=== PATIENT | female | born 1925 | race Caucasian/White ===

== ENCOUNTER 2016-09-03 17:45 | Emergency (ER) | payer MEDICARE, BC ==
[~2016-09-03 17:45] MED LIST: DIFLUCAN PO; DITROPAN 5MG TAB5 MG PO; FEMIRON20 MG; FERROUS SU325 MG/TAB PO; MICONAZOLE CREA30 GM TP; MULTI VITAMINS1 TAB PO; MYSOLINE 5050 MG/TAB PO; THERAGRAN TAB1 UDTAB PO; WARFARIN SOD5 MG PO; WARFARIN SODIUM1 MG PO; [UNRECOGNIZED DRUG - OTHER] PO
[2016-09-03] MEDS ORDERED: LEVOTHYROXINE0.05 MG PO (18:31)
[2016-09-03] MEDS ORDERED: TRIAMTERENE AND1 TAB PO (18:31)
[2016-09-03] MEDS ORDERED: MYSOLINE50 M1 (18:32)
[2016-09-03 20:27] VITALS: BP 157/83
[2016-09-04] MEDS ORDERED: MEGACE ES625 MG/5 M PO (08:16)
[2016-09-04] MEDS ORDERED: DYAZIDE 37.5-21 EACH PO (08:20)
[2016-09-04] MEDS ORDERED: LEXAPRO 10MG10 MG PO (08:20)
[2016-09-04] MEDS ORDERED: DAILY VALUE1 EACH PO (08:21)
== END 2016-09-03 20:27 | disposition home or self-care (01) ==
LOC: ED 17:45
DX: A09 Infectious gastroenteritis and colitis, unspecified (principal); E87.1 Hypo-osmolality and hyponatremia
CPT/HCPCS: J2405

== ENCOUNTER 2016-09-04 07:24 | Emergency (ER) | payer MEDICARE, BC ==
[~2016-09-04 07:24] MED LIST changes: +LEVOTHYROXINE0.05 MG PO; +MYSOLINE50 M1; +TRIAMTERENE AND1 TAB PO
[2016-09-04] MEDS ORDERED: MEGACE ES625 MG/5 M PO (08:16)
[2016-09-04] MEDS ORDERED: DYAZIDE 37.5-21 EACH PO (08:20)
[2016-09-04] MEDS ORDERED: LEXAPRO 10MG10 MG PO (08:20)
[2016-09-04] MEDS ORDERED: DAILY VALUE1 EACH PO (08:21)
[2016-09-04 13:37] VITALS: BP 134/94
== END 2016-09-04 13:43 ==
LOC: ED 07:24
DX: I26.99 Other pulmonary embolism without acute cor pulmonale (principal); R09.02 Hypoxemia; Z51.5 Encounter for palliative care
CPT/HCPCS: J2405; Q9967